=== PATIENT | male | born 1955 | race Caucasian/White ===

== ENCOUNTER 2019-06-10 08:16 | Outpatient (CLI) | payer BC ==
--- NOTE | 2019-06-10 10:22 | MRI ---
MRI LUMBAR SPINE WITHOUT CONTRAST: 06/10/2019 HISTORY: Back pain. Left leg pain. TECHNIQUE: Multiplanar, multisequence MR imaging of the lumbar spine obtained without contrast. FINDINGS: The sagittal STIR imaging demonstrates no focal area of osseous marrow edema. There is mid lumbar spine levoscoliosis. On the basis of five lumbar type vertebral bodies, the conus medullaris terminates at the L1-L2 level . T12-L1: Mild disc space narrowing and disc desiccation. Mild bilateral facet hypertrophy. No signific ant central canal or neural foraminal stenosis. L1-L2: Intervertebral disc height and signal intensity is within normal limits. No significant centra l canal or neural foraminal stenosis. L2-L3: There is disc space narrowing and degenerative endplate change posteriorly with disc desiccati on and disc bulge. There is a small right paracentral disc herniation with 9 mm of inferior migration causing a mild degree of right lateral recess stenosis at L2-L3. Mild bilateral facet hyper trophy. No significant neural foraminal stenosis. L3-L4: There is disc space narrowing, disc desiccation, and mild disc bulge with mild central canal s tenosis. Bilateral facet hypertrophy is present. No significant neural foraminal stenosis. L4-L5: There is mild bilateral facet hypertrophy. Intervertebral disc height and signal intensity is grossly unremarkable. Mild neural foraminal stenosis on the left. No significant central canal or right neural foraminal stenosis. L5-S1: Mild bilateral facet hypertrophy, left greater than right. There is an annular tear in the left paracentral region. There is mild disc bulge with no central can al stenosis. There is mild/moderate left neural foraminal stenosis. No central canal or right neural foraminal stenosis. The imaged retroperitoneal structures demonstrate no acute findings. IMPRESSION: Degenerative disc disease as detailed above, most prominent at L2-L3 on the right. Transcribed Date/Time: 06/10/2019 11:07 AM
--- NOTE | 2019-06-10 10:42 | MRI ---
MRI CERVICAL SPINE WITHOUT CONTRAST: 06/10/2019 HISTORY: Acute neck pain, right-sided shoulder pain. COMPARISON: None. TECHNIQUE: Multiplanar multisequence MR imaging of the cervical spine obtained without contrast. FINDINGS: Sagittal STIR imaging unremarkable. Cervical vertebral body height and alignment normal. Mild degenerative change at the atlantoaxial interspace. C2-C3: No central canal or neural foraminal stenosis. C3-C4: No central canal or neural foraminal stenosis. C4-C5: Mild disc space narrowing with minimal disc bulge partially effacing the ventral thecal sac. N o significant central canal stenosis. Facet and uncovertebral osteophyte formation noted on the left with moderate left neural foraminal stenosis. No significant right neural foraminal stenosis. C5-C6: There is disc desiccation, disc space narrowing, and a small left paracentral disc protrusion. There is no associated central canal stenosis. Uncovertebral and facet osteophyte formation leads to moderate bilateral neural foraminal stenosis, left greater than right. C6-C7: Facet and uncovertebral osteophyte formation on the left causes severe left neural foraminal s tenosis. Mild disc space narrowing and disc desiccation. No significant central canal or right neural foraminal stenosis. C7-T1: Mild bilateral facet hypertrophy, left greater than right. Mild left neural foraminal stenosis . No significant central canal or right neural foraminal stenosis. No abnormal signal intensity identified within the cervical cord. IMPRESSION: Cervical spine degenerative change as detailed above. Transcribed Date/Time: 06/10/2019 11:12 AM
== END 2019-06-10 08:17 | disposition home or self-care (01) ==
LOC: TBSIIMAG 08:16
PROVIDERS: ATTEND Neurological Surgery
DX: M54.2 Cervicalgia (principal); M54.5 Low back pain; M47.812 Spondylosis without myelopathy or radiculopathy, cervical region; M51.36 Other intervertebral disc degeneration, lumbar region
CPT/HCPCS: 72141; 72148

== ENCOUNTER 2019-07-27 08:39 | Outpatient (CLI) | payer BC ==
[2019-07-27] MEDS ORDERED: Magnevist 469MG/ML 20 ML VIAL ONE (11:12)
--- NOTE | 2019-07-27 11:19 | MRI ---
MRI PELVIS WITH AND WITHOUT CONTRAST: HISTORY: C61, prostate cancer. COMPARISON: None. FINDINGS: Multiplanar, multisequence MRI pelvis was performed utilizing prostate protocol. The exam was reviewe d on an independent 3D workstation. The prostate measures 4.9 x 4.5 x 4.9 cm for a volume of 52.44 mL. Peripheral zone: No abnormal focal area of high signal on DWI or marked low signal on the ADC map. Th ere is an area of scar with peripheral capsular retraction at 5 o'clock, near the apex. Transitional zone: Multiple encapsulated heterogeneous nodules. Prostatic capsule: Intact. Neurovascular bundles: Intact. Seminal vesicles: Intact. Urinary bladder: Intact. Intrapelvic soft tissues: Unremarkable. Likely prior right inguinal hernia repair and left inguinal h ernia repair. Bones: On the large [id number] T1 weighted imaging sequence there are no abnormal focal areas of s ignal replacement to suggest osseous metastatic disease. There are subcortical cysts of the left femoral head/neck junction, synovial herniation pits. Lymph nodes: No adenopathy. IMPRESSION: 1. PI-RADS category 2: Low (clinically significant prostate cancer is unlikely to be present). 2. No evidence for local regional lymphatic or osseous metastatic disease. 3. Intact prostatic capsule and neurovascular bundles. Transcribed Date/Time: 07/27/2019 11:26 AM
== END 2019-07-27 08:40 | disposition home or self-care (01) ==
LOC: TBSIIMAG 08:39
PROVIDERS: ATTEND Urology
DX: C61 Malignant neoplasm of prostate (principal)
CPT/HCPCS: 72197; 82565; A9579

== ENCOUNTER 2019-07-27 12:05 | Outpatient (CLI) | payer BC ==
--- NOTE | 2019-07-27 13:15 | RAD ---
XR Cervical Spine 4 View Min History: Neck pain Comparison: MR cervical spine May 2019 Findings: No acute fracture or malalignment. Moderate degenerative disc space narrowing from C4-C7. D egenerative 2 mm C4 over C5 retrolisthesis due to disc space narrowing. No abnormal translation with flexion or extension. Paraspinal soft tissues are unremarkable. Impression: Moderate degenerative changes without significant subluxation with flexion or extension.
--- NOTE | 2019-07-27 13:17 | RAD ---
XR Lumbar Spine Min 4 View History: Lumbar back pain Comparison: Lumbar spine MRI May 2019 Findings: Mild levoscoliosis lumbar spine. No acute fracture or malalignment. Moderate degenerative d isc space narrowing at L2/L3 with sclerosis of the endplates. Mild narrowing of the L5/S1 disc space. Degenerative 2 to 3 mm L3 over L4 retrolisthesis due to degenerative disc space height loss. Moderate facet arthropathy lower lumbar spine. Impression: Moderate degenerative changes without significant translation with flexion or extension.
== END 2019-07-27 12:06 | disposition home or self-care (01) ==
LOC: BICRAD 12:05
PROVIDERS: ATTEND Neurological Surgery
DX: M54.5 Low back pain (principal); M54.2 Cervicalgia; M47.816 Spondylosis without myelopathy or radiculopathy, lumbar region; M47.812 Spondylosis without myelopathy or radiculopathy, cervical region
CPT/HCPCS: 36415; 72050; 72110; 81001; 87086

== ENCOUNTER 2019-08-31 06:52 | Outpatient (CLI) | payer BC ==
[2019-08-31 10:32] LABS: Hemoglobin 15.3 g/dL (14.0-18.0); Mean Corpuscular HGB CONC 33.3 g/dL (32.0-36.0); Mean Corpuscular Hemoglobin 30.2 pg (27.0-31.0); Mean Corpuscular Volume 90.8 fL (78.0-98.0); Mean Platelet Volume 8.7 fL (7.4-10.4); Platelet Count 259 thou/uL (130-400); RBC Distribution Width 11.7 % (11.5-14.5); Red Blood Cell (RBC) Count 5.07 mill/uL (4.70-6.10); White Blood Cell (WBC) Count 6.3 thou/uL (4.8-10.8)
[2019-08-31 10:35] LABS: Bacteria/HPF None Seen HPF (None Seen); Bilirubin Negative (Negative); Blood, Urine Negative (Negative); Clarity Clear (Clear); Glucose, Urine (Dipstick) Normal (Negative); Leukocyte Negative Leu/uL (Negative); Nitrite Negative (Negative); Protein, Urine (Dipstick) Negative (Neg-Trace); RBC/HPF 0-3 HPF (0-3); Squamous Epithelial None Seen HPF (0-3); Urobilinogen Normal mg/dL (Less than 2); WBC/HPF 0-3 HPF (0-3)
[2019-08-31 10:43] LABS: PTT 28.2 SEC (22.9-36.1); Prothrombin Time 12.7 SEC (12.0-14.7)
[2019-08-31 10:47] LABS: Anion Gap 13 mmol/L (10-20); BUN (Urea Nitrogen) 9 mg/dL (8.4-25.7); Calc. Creatinine Clearance 0 mL/min (70-130); Calcium 9.3 mg/dL (7.8-10.44); Carbon Dioxide 23 mmol/L (23-31); Chloride 106 mmol/L (98-107); Estimated GFR-MDRD 64; Glucose 90 mg/dL (80-115); Sodium 138 mmol/L (136-145)
== END 2019-08-31 06:53 | disposition home or self-care (01) ==
LOC: LABBT 06:52
PROVIDERS: ATTEND Urology
DX: Z01.818 Encounter for other preprocedural examination (principal); C61 Malignant neoplasm of prostate; R97.20 Elevated prostate specific antigen [PSA]; N40.1 Benign prostatic hyperplasia with lower urinary tract symptoms; R35.0 Frequency of micturition; Z98.890 Other specified postprocedural states; N13.8 Other obstructive and reflux uropathy
CPT/HCPCS: 80048; 81001; 85027; 85610; 85730; 87086; 93005; 93010

== ENCOUNTER 2019-09-14 05:55 | Day surgery (SDC) | payer BC ==
[2019-08-31 09:22] VITALS: BMI 25.7
[2019-09-14] MEDS ORDERED: Sodium Chloride 0.9% 100 ML ONE (06:11)
[2019-09-14] MEDS ORDERED: cefTRIAXone\\ROCEPHIN 2 GM VIAL ONE (06:11)
[2019-09-14] MEDS ORDERED: Levofloxacin 500 mg/D5W 100 ml Premix Bag ONE (06:11)
[2019-09-14] MEDS ORDERED: Fentanyl 100 MCG/2 ML VIAL ONE (06:40)
[2019-09-14] MEDS ORDERED: PROPOFOL 200 MG/20 ML VIAL ONE (10:05)
--- NOTE | 2019-09-14 13:52 | OP ---
DATE OF PROCEDURE: 09/14/2019 PREOPERATIVE DIAGNOSES: 1. A 63-year-old male with clinical T1c prostate cancer, [place] score 3+3, 1/12 core positive, GPS score of 19, low risk. 2. Benign prostatic hypertrophy. POSTOPERATIVE DIAGNOSES: 1. A 63-year-old male with clinical T1c prostate cancer, [place] score 3+3, 1/12 core positive, GPS score of 19, low risk. 2. Benign prostatic hypertrophy. PROCEDURES PERFORMED: Transrectal ultrasound, staging biopsy 12-core, volume study. ANESTHESIA: TIVA. COMPLICATIONS: None. DISPOSITION: Recovery room in stable condition. SPECIMEN: 12-core needle biopsy. DESCRIPTION OF PROCEDURE: The patient was taken to the operating room, placed in a dorsal lithotomy position with the genital area prepped and draped in the usual surgical sterile fashion. The patient was placed in a lateral decubitus position. A transrectal ultrasound probe was placed. Prostate was measured, which demonstrated a volume of 39 g. Urethral length 5.1, width of 4.6, height of 3.0. We subsequently passed 12-core needle biopsy in a standard 12-core section. The patient tolerated the procedure well and transported to Day Stay in stable condition. He is discharged with Levaquin x3 days and will see me for postoperative eval and consultation for biopsy results. Job ID: [id number] [facility]
== END 2019-09-14 10:05 | disposition home or self-care (01) ==
LOC: SDC 05:55
PROVIDERS: ATTEND Urology
PROC: 0VB03ZX Excision of Prostate, Percutaneous Approach, Diagnostic (ICD-10-PCS; principal; 2019-09-14)
DX: C61 Malignant neoplasm of prostate (principal); N40.0 Benign prostatic hyperplasia without lower urinary tract symptoms; E78.5 Hyperlipidemia, unspecified; M19.90 Unspecified osteoarthritis, unspecified site; F90.9 Attention-deficit hyperactivity disorder, unspecified type; Z79.899 Other long term (current) drug therapy
CPT/HCPCS: 88305; J0696; J1956; J2704; J3010; J3490